=== PATIENT | female | born 1950 | race Caucasian/White ===

== ENCOUNTER 2020-03-08 14:26 | Inpatient (IN) | payer OTHER ==
[~2020-03-08] VITALS: Ht 170.2 cm; Wt 81.8 kg
[2020-03-08 15:45] LABS: HEMOGLOBIN 14.1 gm/dl (12.3-15.3); RED BLOOD COUNT 4.59 M/UL (4.00-5.10); WHITE BLOOD COUNT 4.9 K/UL (4.5-11.0)
[2020-03-08 16:13] LABS: BUN/CREATININE RATIO 21 (0-10)
[2020-03-08 17:03] LABS: BUN/CREATININE RATIO 19 (0-10)
[2020-03-08 20:30] LABS: BUN/CREATININE RATIO 19 (0-10)
[2020-03-09] MEDS ORDERED: NORVASC10 MG PO (00:59)
[2020-03-09] MEDS ORDERED: ASPIRIN CHEWABL81 MG PO (00:59)
[2020-03-09] MEDS ORDERED: PRAVASTATIN SOD10 MG PO (01:00)
[2020-03-09] MEDS ORDERED: PATADAY2.5 ML EYERT (01:00)
[2020-03-09] MEDS ORDERED: GLUCOPHAGE500 MG PO (01:00)
[2020-03-09] MEDS ORDERED: ZESTRIL40 MG PO (01:01)
[2020-03-09] MEDS ORDERED: HYDROCHLOROTHIA25 MG PO (01:01)
[2020-03-09 03:41] LABS: HEMOGLOBIN 13.1 gm/dl (12.3-15.3); RED BLOOD COUNT 4.25 M/UL (4.00-5.10); WHITE BLOOD COUNT 4.4 K/UL (4.5-11.0)
[2020-03-09 04:04] LABS: BUN/CREATININE RATIO 18 (0-10)
[2020-03-09 08:49] LABS: BUN/CREATININE RATIO 15 (0-10)
[2020-03-12] MEDS ORDERED: NORVASC5 MG PO (02:43)
== END 2020-03-11 15:28 | disposition home or self-care (01) | DRG 640 ==
LOC: ER1 14:26 → MED SURG 4 17:31 → ZEROF 17:31 → MED SURG 4 03-09 16:28
PROVIDERS: Emergency Medicine; Internal Medicine Nephrology; ADMIT Internal Medicine
PROC: 8E0ZXY6 Isolation (ICD-10-PCS; principal; 2020-03-08)
DX: E87.1 Hypo-osmolality and hyponatremia (principal); U07.1 COVID-19; I10 Essential (primary) hypertension; E11.9 Type 2 diabetes mellitus without complications; Z96.641 Presence of right artificial hip joint; R63.1 Polydipsia; T50.2X5A Adverse effect of carbonic-anhydrase inhibitors, benzothiadiazides and other diuretics, initial encounter; Z79.899 Other long term (current) drug therapy; Z90.49 Acquired absence of other specified parts of digestive tract
CPT/HCPCS: 36415; 71045; 80048; 80053; 81001; 82533; 82962; 83690; 84295; 84443; 85025; 96372; 96374; 96375; 99285; J1650; J2405; J7030; J7131; U0002

== ENCOUNTER 2020-03-11 23:57 | Emergency (ER) | payer OTHER ==
[~2020-03-11 23:57] MED LIST: ASPIRIN CHEWABL81 MG PO; GLUCOPHAGE500 MG PO; HYDROCHLOROTHIA25 MG PO; NORVASC10 MG PO; PATADAY2.5 ML EYERT; PRAVASTATIN SOD10 MG PO; ZESTRIL40 MG PO
[2020-03-12] MEDS ORDERED: NORVASC5 MG PO (02:43)
== END 2020-03-12 03:05 | disposition home or self-care (01) ==
LOC: ER1 23:57
DX: I10 Essential (primary) hypertension (principal); U07.1 COVID-19; E11.9 Type 2 diabetes mellitus without complications
CPT/HCPCS: 93005; 99283

== ENCOUNTER → 2020-03-14 | Outpatient (CLI) | payer OTHER ==
[~2020-03-14] MED LIST changes: +NORVASC5 MG PO
== END ==
LOC: LAB 10:03
PROVIDERS: Internal Medicine
DX: E87.1 Hypo-osmolality and hyponatremia (principal)
CPT/HCPCS: 80048

== ENCOUNTER 2021-10-23 12:12 | Emergency (ER) | payer OTHER ==
[2021-10-23 13:11] LABS: HEMOGLOBIN 13.6 gm/dl (12.3-15.3); RED BLOOD COUNT 4.48 M/UL (4.00-5.10); WHITE BLOOD COUNT 7.8 K/UL (4.5-11.0)
[2021-10-23 13:50] LABS: BUN/CREATININE RATIO 23 (0-10)
== END 2021-10-23 15:29 | disposition home or self-care (01) ==
LOC: ER1 12:12
PROVIDERS: Physician Assistant
DX: G44.209 Tension-type headache, unspecified, not intractable (principal); I16.0 Hypertensive urgency; E11.22 Type 2 diabetes mellitus with diabetic chronic kidney disease; I12.9 Hypertensive chronic kidney disease with stage 1 through stage 4 chronic kidney disease, or unspecified chronic kidney disease; N18.9 Chronic kidney disease, unspecified; Z90.710 Acquired absence of both cervix and uterus; Z90.49 Acquired absence of other specified parts of digestive tract; Z90.89 Acquired absence of other organs; Z20.822 Contact with and (suspected) exposure to COVID-19
CPT/HCPCS: 0240U; 70450; 71045; 80053; 81001; 82550; 82553; 83605; 84439; 84443; 84484; 85025; 93005; 96361; 96374; 99284; J1885

== ENCOUNTER 2021-11-04 20:13 | Emergency (ER) | payer OTHER ==
[2021-11-04 20:43] LABS: HEMOGLOBIN 13.2 gm/dl (12.3-15.3); RED BLOOD COUNT 4.31 M/UL (4.00-5.10); WHITE BLOOD COUNT 7.4 K/UL (4.5-11.0)
== END 2021-11-05 01:38 | disposition short-term general hospital (02) ==
LOC: ER1 20:13
PROVIDERS: Family Medicine
DX: G45.9 Transient cerebral ischemic attack, unspecified (principal); E11.9 Type 2 diabetes mellitus without complications; E78.5 Hyperlipidemia, unspecified; I10 Essential (primary) hypertension; Z79.84 Long term (current) use of oral hypoglycemic drugs; Z79.82 Long term (current) use of aspirin
CPT/HCPCS: 70450; 80053; 81001; 82550; 82553; 82962; 84484; 85025; 85610; 85730; 93005; 99285